=== PATIENT | male | born 1945 | race Caucasian/White ===

== ENCOUNTER 2018-06-16 09:50 | Day surgery (SDC) | payer MEDICARE, OTHER ==
[~2018-06-16 09:50] MED LIST: ACETAMINOPHEN 1,000 MG/100 ML BTL IV ONE
[2018-06-16] MEDS ORDERED: PROPOFOL 10 MG/ML VIAL IV ONE (09:51)
[2018-06-16] MEDS ORDERED: BUPIVACAINE 0.25% W/EPI MPF 30ML VIAL IVP ONE (09:51)
[2018-06-16] MEDS ORDERED: FENTANYL PF 100MCG/2ML VIAL IV ONE (09:51)
[2018-06-16] MEDS ORDERED: *PACU ONLY* KETAMINE HCL 10 MG/ML (20ML) VIAL IV ONE (09:51)
--- NOTE | 2018-06-17 12:20 | Operative Note ---
DATE OF SURGERY: 06/16/2018 Surgeon: Anatoliy Perkins DO Referring physician: Saul Pineda MD, FACP PREOPERATIVE DIAGNOSES: 1. Chest wall mass. 2. Back mass. POSTOPERATIVE DIAGNOSES: 1. Chest wall mass. 2. Back mass. OPERATION: 1. Excision of chest wall mass, measuring 3 x 2 cm in the subcutaneous. 2. Excision of back mass, measuring 5 x 2 cm into the subcutaneous. Indication: The patient is a 73-year-old male who presented to the clinic with pain and the aforementioned masses. He had had an abscess on his back, which was I & D'd in the past. We did discuss excision, risks, benefits, and alternatives were discussed. His risks include bleeding, infection, recurrence. He understood this fully. The consent was signed, questions were answered. PROCEDURE: He was taken to the operating room and placed in the supine position. He was rotated on his side with the beanbag as support. His back and chest were prepped and draped in the usual fashion. The area on his back was anesthetized with a total of 8 mL of 0.25% Sensorcaine with epinephrine. An elliptical incision made around the rather large sebaceous cyst. This was dissected free in the subcutaneous tissue with cautery. This was then fully excised without rupture. This did measure 5 x 2 cm. The wound was then irrigated. A [place] drain was placed and nylon sutures were used to close the wound. Attention was now turned to the chest where the patient had a smaller sebaceous cyst excised measuring 3 x 2 cm. Here, no drain was placed and this wound was also closed with 3-0 nylon. The patient tolerated the procedure well. I will see him back in a few weeks. He was given drain care instructions as well. Thank you for this referral. CC: SAUL PINEDA MD, FACP [facility]
== END 2018-06-16 12:05 | disposition home or self-care (01) ==
LOC: SUR 09:50
PROVIDERS: ATTEND Surgery
DX: R22.2 Localized swelling, mass and lump, trunk (principal); I10 Essential (primary) hypertension; E78.00 Pure hypercholesterolemia, unspecified; Z79.01 Long term (current) use of anticoagulants; J44.9 Chronic obstructive pulmonary disease, unspecified; I25.10 Atherosclerotic heart disease of native coronary artery without angina pectoris; Z95.5 Presence of coronary angioplasty implant and graft; G47.30 Sleep apnea, unspecified
CPT/HCPCS: 11406; 11404; 00300; J3010

== ENCOUNTER 2018-06-20 09:04 | Day surgery (SDC) | payer MEDICARE, OTHER ==
[2018-06-20] MEDS ORDERED: PROPOFOL 10 MG/ML VIAL IV ONE (09:05)
[2018-06-20] MEDS ORDERED: LIDOCAINE 1% MDV (10MG/ML) 20ML VIAL SQ ONE (09:05)
[2018-06-20] MEDS ORDERED: FENTANYL PF 100MCG/2ML VIAL IV ONE (09:05)
--- NOTE | 2018-07-02 12:30 | Operative Note ---
DATE OF SURGERY: 06/20/2018 SURGEON: Lynn Gipson MD OPERATION: ESOPHAGOGASTRODUODENOSCOPY. INDICATIONS: This is a 73-year-old male with history of intermittent episodes of dysphagia who presented for esophagogastroduodenoscopy. POSTOPERATIVE DIAGNOSES: 1. Normal esophagus with no mass lesions, status post Mcmillan dilatation to 60 [place]. 2. Diffuse erosion and erythema along the gastric body and antrum. 3. Normal duodenum. ANESTHESIA: Sedation is per Anesthesia. Pulse oximetry was monitored throughout the procedure to maintain O2 saturation of 90% or greater. Supplemental oxygen was administered via nasal cannula. Cardiac and vital signs were monitored throughout the duration of the procedure, and they were stable. The procedure of esophagogastroduodenoscopy and risks and benefits of the procedure, including the risk of bleeding and perforation, among others, were explained to the patient who voiced understanding and agreed to have the procedure done. Physical examination was performed, and the patient was found stable for sedation. PROCEDURE: The patient was placed in the left lateral position. Sedation was initiated. A plastic bite block was inserted into the oral cavity. The Olympus [id number] gastroscope was introduced into the oral cavity and advanced to the proximal esophagus without difficulty. The esophageal mucosa was carefully examined upon introduction of the gastroscope. The proximal and mid and distal esophageal mucosa appeared normal. The gastroscope was then advanced into the stomach, and surveillance of the stomach revealed diffuse erythema along the gastric body and antrum but no ulcers were noted. The gastroscope was then advanced to the descending duodenum without difficulty. The duodenal bulb and descending duodenum appeared normal. The gastroscope was then withdrawn into the stomach and retroflexion was performed. There were no other lesions noted. The gastroscope was then straightened and withdrawn while carefully examining the gastric and esophageal mucosa. No other lesions noted. Multiple gastric biopsies were obtained. Then a Mcmillan dilator size 60 [place] was then passed into the stomach with minimal resistance. The Mcmillan dilator was then withdrawn and the procedures were terminated. The patient tolerated the procedure well without any immediate complaints. The patient remained with stable vital signs and was transferred to the recovery room. RECOMMENDATIONS: 1. The patient is to continue on proton pump inhibitors. 2. The patient is to have repeat esophagogastroduodenoscopy as needed. Of note, there are postsurgical changes consistent with Huan fundoplication that was intact. Thank you for allowing me to participate in the care of your patient. CC: SAUL IBRAHIM MD, FACP [facility]
== END 2018-06-20 11:20 | disposition home or self-care (01) ==
LOC: HOP 09:04
PROVIDERS: ATTEND Internal Medicine Gastroenterology
DX: R13.10 Dysphagia, unspecified (principal); K29.70 Gastritis, unspecified, without bleeding; E78.00 Pure hypercholesterolemia, unspecified; I10 Essential (primary) hypertension; J44.9 Chronic obstructive pulmonary disease, unspecified
CPT/HCPCS: 43235; 43450; 00731; 88305; J3010

== ENCOUNTER 2018-11-26 00:06 | Emergency (ER) | payer MEDICARE, OTHER ==
[2018-11-26] MEDS ORDERED: 0.9 % SODIUM CHLORIDE 1,000 ML BAG IV ONE (00:19)
[2018-11-26] MEDS ORDERED: FENTANYL PF 100MCG/2ML VIAL IVP ONE ×2 (00:19→02:10)
[2018-11-26] MEDS ORDERED: ONDANSETRON HCL IV 4 MG/2 ML VIAL IVP ONE ×2 (00:19→01:12)
[2018-11-26] MEDS ORDERED: ACETAMINOPHEN 1,000 MG/100 ML BTL IVPB ONE (00:26)
--- NOTE | 2018-11-26 00:26 | Emergency Department Record ---
History of Present Illness - General Chief complaint: Vomiting Stated complaint: NAUSEA/VOMITING Time Seen by Provider: 11/26/18 00:15 Source: Patient, Family Mode of Arrival: Ambulatory Limitations: No limitations - History of Present Illness Initial comments: 73 yo male presents with nausea, vomiting, and abdominal pain that started this evening around 9pm. He did not feel well during the afternoon when he ate experiencing some pain. The pain and nausea progressed to vomiting in the evening around 9pm. 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 (Dr Jose Camarillo) He has had some pain for several months. He has seen his PCP and GI. He had upper endoscopy in June. It demonstrated a normal esophagus S/P a Mcmillan dilatation to 60 [place]; gastric erosions of the body and antrum noted, normal duodenum. The patient had no swallowing issues after the June dilatation until possibly around August when is began again. The states that in the recent several weeks he eating again is poor with some pain or difficulty swallowing. CT of the abdomen WO contrast on 11/18/18 demonstrated colonic diverticulosis without diverticulitis. He has continued to have the pain. He points to the epigastrium at the location of the pain with some radiation to the chest and back. No blood in the vomit. PCP Dr Pineda GI Dr Gipson- Endoscopy Thoracic Dr Camarillo - Paraesophageal hernia Cardiology Dr Terry General Surgery Dr Perkins - Gall bladder complaint: Abdominal pain, Nausea, Vomiting Onset/Timin -: Hour(s) Description of Vomiting: Watery Associated Abdominal Pain: Yes Location: LUQ, RUQ Radiation: Back, Chest, LLQ, RLQ Severity: Moderate Severity scale (1-10): 6 Quality: Aching Consistency: Constant Improves with: None Worsens with: Movement, Other Context: History of abdominal surgery Associated Symptoms: Chest pain, Nausea/vomiting - Related Data Allergies Allergy/AdvReac Type Severity Reaction Status Date / Time morphine AdvReac HYPOTENSION Unverified 11/08/17 13:25 Travel Screening - Travel/Exposure Within Last 30 Days Have you traveled within the last 30 days?: No - Travel Symptoms Symptom Screening: Vomiting, Stomach Pain, Lack of Appetite Review of Systems Constitutional: Reports: Fever. Denies: Chills, Malaise, Weakness Eyes: Denies: Eye discharge ENT: Denies: Congestion, Throat pain Respiratory: Denies: Cough, Dyspnea, Hemoptysis, Stridor, Wheezes Cardiovascular: Reports: As per HPI, Chest pain. Denies: Edema, Palpitations, Syncope Endocrine: Denies: Fatigue Gastrointestinal: Reports: As per HPI, Abdominal pain, Nausea, Vomiting. Denies : Constipation, Diarrhea, Hematemesis, Hematochezia, Melena Genitourinary: Denies: Dysuria, Frequency, Hematuria Musculoskeletal: Reports: As per HPI, Back pain. Denies: Arthralgia, Myalgia Skin: Denies: Bruising, Change in color, Rash Neurological: Denies: Headache Psychiatric: Denies: Anxiety Hematological/Lymphatic: Denies: Easy bleeding, Easy bruising, Swollen glands Past Medical History - SOCIAL HISTORY Smoking Status: Former smoker Alcohol Use: None Drug Use: None - RESPIRATORY Hx Respiratory Disorders: Yes Hx COPD: Yes (controlled with inhalers) Hx Pneumonia: Yes (as a kid) Hx Sleep Apnea: Yes Hx of CPAP: Yes (bi pap) Comment:: problems with diaphram, injury yrs ago had sx to fix it 13 yrs ago - CARDIOVASCULAR Hx Cardio Disorders: Yes Hx Abnormal EKG: Yes Hx Chest Pain: No Hx Hypertension: Yes Hx Palpitations: No Hx Coronary Artery Disease: Yes Hx Coronary Stent: Yes (x's 2) Comment:: plays tennis currently - NEURO Hx Neuro Disorders: No - GI Hx GI Disorders: Yes Hx GI Bleed: Yes (03/2006) Hx Rectal Bleeding: Yes (03/2006) Hx of Polyps: Yes - Hx Genitourinary Disorders: No Hx Bladder Problem: Yes (frequent urination urgency) - ENDOCRINE Hx Endocrine Disorders: No - MUSCULOSKELETAL Hx Musculoskeletal Disorders: No Comment:: RLS - PSYCH Hx Psych Problems: No Hx Anxiety: Yes Hx Depression: Yes (occassionally) - HEMATOLOGY/ONCOLOGY Hx Hematology/Oncology Disorders: No Hx Anemia: Yes Hx Blood Disorders: Yes (polycythemia? does phlebotomy about every month) Hx Cancer: Yes (skin cancer) Family Medical History Any Significant Family History?: Yes Hx Diabetes: Brother/Sister Physical Exam - General General Appearance: Alert, Oriented x3, Cooperative Limitations: Other (Hard of hearing) - Head Head exam: Atraumatic, Normal inspection - Eye Eye exam: Normal appearance. negative: Conjunctival injection - ENT ENT exam: Normal exam Ear exam: Normal external inspection Nasal Exam: Normal inspection Mouth exam: Normal external inspection - Neck Neck exam: Normal inspection - Respiratory Respiratory exam: Normal lung sounds bilaterally. negative: Respiratory distress - Cardiovascular Cardiovascular Exam: Normal rhythm, Gallop, Tachycardia Peripheral Pulses: 2+: Radial (R), Radial (L) - GI/Abdominal GI/Abdominal exam: Soft (morbidly obese), Guarding (between umbilicus and epigastrium), Hernia (ventral, soft), Tenderness (diffusely tender but very soft abdomen. The tenderness is greatest above the umbilicus. No distension), Other (significant obesity does limit the examination but tender mid to upper abdomen otherwise soft. Lower abdomen is not tender at this time). negative: Diminished bowel sounds, Distended, Pulsatile mass - Rectal Rectal exam: Deferred - exam: Deferred - Extremities Extremities exam: Normal inspection - Back Back exam: Denies: CVA tenderness (R), CVA tenderness (L) - Neurological Neurological exam: Alert, Oriented X3 - Psychiatric Psychiatric exam: Normal affect, Normal mood - Skin Skin exam: Dry, Intact, Normal color, Warm Course Vital Signs 11/26/18 00:12 Pulse Rate [ 125 H Pulse Ox Probe] Respiratory 36 H Rate Blood Pressure 148/100 [Left Arm] Pulse Ox 93 L - Reevaluation(s) Reevaluation #1: EMR reviewed for prior CT scans EKG 00:30 Sinus tachycardia 116, intervals normal, axis R, ST NS anterior changes. Similar to prior EKG in general from 06/19/2017. 11/26/18 00:28 11/26/18 00:53 Temperature noted to be 100.4 11/26/18 00:54 The CBC was reviewed. His WBC count is elevated at 14 11/26/18 00:57 The lactic acid is 2.0 The CMP was reviewed. CR is 1.4 11/26/18 01:01 Clinically improved. Now able to relax enough to sleep. 11/26/18 01:28 Lipase is normal 11/26/18 01:34 The troponin is normal 11/26/18 01:36 The patient did vomit his oral contrast. He tried to drink a little more but he states he can not due to nausea. 11/26/18 02:10 The patient has returned from CT The patient still has pain in the abdomen. He points to the area between the umbilicus and the epigastrium. 11/26/18 02:23 I was informed by the helicopter technician there is a delay due to IT complications sending the images to [facility]. 11/26/18 02:34 IT issues resolved and images sent to [facility] 11/26/18 02:[address] [facility] [address] reviewed. Dilated loops of small bowel with the transition zone in the LUQ likely mid to distal jejunum. No mass. Chest CT was negative. General Surgery will be paged. 11/26/18 02:44 The case was discussed with Dr Perkins of general surgery and Dr Guadalupe of the ED. The patient is accepted for ED to ED transfer for further evaluation and workup. 11/26/18 03:05 Patient vomiting significant amount. NG tube ordered to relieve pressure. Medical Decision Making - Lab Data Result diagrams: 11/26/18 00:25 11/26/18 00:25 Disposition Disposition: Transfer Clinical Impression: Abdominal pain, Fever, Vomiting, Small bowel obstruction Disposition: Acute Care Hospital Transfer Transfer To: [facility] Reason For Transfer: Small Bowel Obstruction Accepting Physician: Collins Perkins Time Discussed w/Accepting Physician: 02:39 Condition: (3) Guarded Forms: Patient Portal Access Time of Disposition: 02:39 Quality - Quality Measures Quality Measures: N/A - Blood Pressure Screening Does Patient Have Any of the Following: Active Dx of HTN Blood Pressure Classification: Pre-Hypertensive BP Reading Systolic Measurement: 145 Diastolic Measurement: 89 Screening for High Blood Pressure: Patient Exclusion, Hx of HTN [G9744]
[2018-11-26 00:34] LABS: BASO % 0.1 % (0-6); EOS % 0.3 % (0-6); HEMATOCRIT 52.4 % (42.0-52.0); LYMPH % 4.2 % (16-45); MEAN CELL VOLUME 76.9 fl (81-97); MEAN CORPUSCULAR HGB CONC 30.5 g/dl (32-36); MONO % 3.9 % (0-9); PLATELET COUNT 205 K/uL (130-400); RED BLOOD COUNT 6.81 M/uL (4.40-5.70); RED CELL DISTRIBUTION WIDTH 20.1 % (11.5-14.5); WHITE BLOOD COUNT W/O DIFF 14.7 K/uL (4.2-12.2)
[2018-11-26 00:35] LABS: MEAN CORPUSCULAR HEMOGLOBIN 23.4 pg (27-33)
[2018-11-26 00:46] LABS: INR 1.1; PARTIAL THROMBOPLASTIN TIME 25.3 SECONDS (24.5-39.1); PROTHROMBIN TIME (PATIENT) 11.4 SECONDS (9.5-12.1)
[2018-11-26 00:54] LABS: ALB/GLOB RATIO 1.7 (1.1-1.8); ALBUMIN 4.5 g/dL (4.0-5.0); ALKALINE PHOSPHATASE 48 U/L (40-129); ALT/SGPT 33 U/L (<41); AST/SGOT 25 U/L (10.0-50.0); BLOOD UREA NITROGEN 20 mg/dL (8-23); CREATININE 1.4 mg/dL (0.7-1.2); EST GLOMERULAR FILTRATION RATE 53 mL/min; GLUCOSE,RANDOM 125 mg/dL (74-109); TOTAL PROTEIN 7.2 g/dL (6.6-8.7)
[2018-11-26 00:57] LABS: ANISOCYTOSIS 2+; MICROCYTOSIS 1+; PLATELET ESTIMATE NORMAL (NORMAL)
[2018-11-26] MEDS ORDERED: ERTAPENEM SODIUM 1 G in 0.9 % SODIUM CHLORIDE 100ML 100 ML IVPB ONE (02:42)
--- NOTE | 2018-11-26 14:20 | CT SCAN REPORT ---
EXAM: CT SCAN CHEST W CONTRAST, ABDOMEN AND PELVIS HISTORY: GENERALIZED ABDOMINAL PAIN. TECHNIQUE: Sequential axial images were obtained from the thoracic inlet through the bilateral adrenal glands after intravenous administration of 100 mL of Omnipaque-300 contrast material. FINDINGS: The heart appears normal. There is mild cardiomegaly without pericardial effusion. There is a fluid-filled esophagus and post-op surgical change at the gastroesophageal junction. No mediastinal or hilar lymphadenopathy. There is linear scar tissue in both lung bases. No pleural effusion. The liver appears homogeneous. The gallbladder is surgically removed. Pancreas and spleen appear normal. 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 The adrenal glands and kidneys appear normal. There is an early small bowel obstruction with a transition point in the left upper quadrant. There is colonic diverticulosis without evidence of diverticulitis. The urinary bladder appears normal. There is prostate gland hyperplasia. There is multilevel degenerative change of the thoracolumbar spine. IMPRESSION: 1. FINDINGS SUGGESTIVE OF AN EARLY SMALL BOWEL OBSTRUCTION WITH A TRANSITION POINT IN THE LEFT UPPER QUADRANT. THERE IS DISTENTION OF THE STOMACH AND ESOPHAGUS, WHICH IS FLUID-FILLED. 2. THERE ARE LINEAR OPACITIES IN BOTH LUNG BASES. JOB NUMBER: [id number] [facility]
--- NOTE | 2018-11-26 14:22 | CT SCAN REPORT ---
EXAM: CT SCAN ABDOMEN/PELVIS W CONTRAST, CT CHEST W CONTRAST HISTORY: GENERALIZED ABDOMINAL PAIN. TECHNIQUE: Sequential axial images were obtained from the thoracic inlet through the bilateral adrenal glands after intravenous administration of 100 mL of Omnipaque-[address] scan of the abdomen and pelvis also performed. FINDINGS: The heart appears normal. There is mild cardiomegaly without pericardial effusion. There is a fluid-filled esophagus and post-op surgical change at the gastroesophageal junction. No mediastinal or hilar lymphadenopathy. There is linear scar tissue in both lung bases. No pleural effusion. The liver appears homogeneous. The gallbladder is surgically removed. Pancreas and spleen appear normal. 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 The adrenal glands and kidneys appear normal. There is an early small bowel obstruction with a transition point in the left upper quadrant. There is colonic diverticulosis without evidence of diverticulitis. The urinary bladder appears normal. There is prostate gland hyperplasia. There is multilevel degenerative change of the thoracolumbar spine. IMPRESSION: 1. FINDINGS SUGGESTIVE OF AN EARLY SMALL BOWEL OBSTRUCTION WITH A TRANSITION POINT IN THE LEFT UPPER QUADRANT. THERE IS DISTENTION OF THE STOMACH AND ESOPHAGUS, WHICH IS FLUID-FILLED. 2. THERE ARE LINEAR OPACITIES IN BOTH LUNG BASES. JOB NUMBER: [id number] [facility]
== END 2018-11-26 03:27 | disposition short-term general hospital (02) ==
LOC: ER 00:06
DX: K56.609 Unspecified intestinal obstruction, unspecified as to partial versus complete obstruction (principal); R11.2 Nausea with vomiting, unspecified; I10 Essential (primary) hypertension; J44.9 Chronic obstructive pulmonary disease, unspecified; Z87.891 Personal history of nicotine dependence
CPT/HCPCS: 99285 ×2; 96376; 96365; 96375; 83605; 83690; 85730; 85610; 80053; 84484; 85027; 71260; 74177; 93005; 93010; Q9967; J1335; J2405; J3010; J7030

== ENCOUNTER 2018-12-30 11:40 | Emergency (ER) | payer MEDICARE, OTHER ==
[2018-12-30] MEDS ORDERED: SODIUM CHLORIDE 0.9% 500 ML IV ONE (13:04)
[2018-12-30 13:17] LABS: HEMATOCRIT 49.2 % (42.0-52.0); HEMOGLOBIN 15.1 gm/dl (14.0-18.0); MEAN CELL VOLUME 75.7 fl (81-97); MEAN CORPUSCULAR HEMOGLOBIN 23.2 pg (27-33); MEAN CORPUSCULAR HGB CONC 30.7 g/dl (32-36); MEAN PLATELET VOLUME 11.2 fl (7.4-10.4); PLATELET COUNT 203 K/uL (130-400); RED CELL DISTRIBUTION WIDTH 20.7 % (11.5-14.5); WHITE BLOOD COUNT W/O DIFF 8.5 K/uL (4.2-12.2)
[2018-12-30 13:26] LABS: BLOOD UREA NITROGEN 23 mg/dL (8-23); EST GLOMERULAR FILTRATION RATE > 60 mL/min
[2018-12-30 13:27] LABS: LIPASE 19 U/L (13-60); PLATELET ESTIMATE NORMAL (NORMAL)
[2018-12-30 13:29] LABS: GLUCOSE,RANDOM 106 mg/dL (74-109)
[2018-12-30 13:31] LABS: ALT/SGPT 28 U/L (<41)
[2018-12-30 13:32] LABS: ALBUMIN 4.4 g/dL (4.0-5.0); ALKALINE PHOSPHATASE 53 U/L (55-149); AST/SGOT 21 U/L (10.0-50.0)
[2018-12-30 13:33] LABS: BILIRUBIN,DIRECT < 0.2 mg/dL (0-0.3)
[2018-12-30 13:43] LABS: URINE APPEARANCE CLEAR; URINE BILIRUBIN NEGATIVE (NEGATIVE); URINE BLOOD NEGATIVE (NEGATIVE); URINE COLOR YELLOW; URINE GLUCOSE (UA) NEGATIVE (NEGATIVE); URINE KETONE NEGATIVE (NEGATIVE); URINE LEUKOCYTE ESTERASE NEGATIVE (NEGATIVE); URINE NITRITE NEGATIVE (NEGATIVE); URINE PROTEIN NEGATIVE (NEGATIVE); URINE UROBILINOGEN 0.2 E.U./dL (0.20 - 1.00)
--- NOTE | 2018-12-30 17:08 | Emergency Department Record ---
History of Present Illness - General Chief Complaint: Abdominal Pain Stated Complaint: ABD PAIN Time Seen by Provider: 12/30/18 12:56 Source: Patient Mode of Arrival: Ambulatory Limitations: No limitations - History of Present Illness Initial Comments: lower abd pain and back pain. he has had it in the past. Complaint: Abdominal pain, Flank pain Onset/Timin -: Year(s) Location: Bilateral flank, Diffuse, L Flank, R Flank, LLQ, RLQ Radiation: Back Severity: Severe Severity scale (1-10): 10 Quality: Other Consistency: Constant Improves With: Rest Worsens With: Movement - Related Data Allergies Allergy/AdvReac Type Severity Reaction Status Date / Time morphine AdvReac HYPOTENSION Unverified 11/08/17 13:25 Travel Screening - Travel/Exposure Within Last 30 Days Have you traveled within the last 30 days?: No - Travel Symptoms Symptom Screening: Stomach Pain Review of Systems Reviewed: No additional complaints except as noted below Constitutional: Reports: As per HPI. Denies: Chills, Fever, Malaise, Night sweats, Weakness, Weight change Eyes: Reports: As per HPI. Denies: Eye discharge, Eye pain, Photophobia, Vision change ENT: Reports: As per HPI. Denies: Congestion, Dental pain, Ear pain, Epistaxis , Hearing loss, Throat pain Respiratory: Reports: As per HPI. Denies: Cough, Dyspnea, Hemoptysis, Stridor, Wheezes Cardiovascular: Reports: As per HPI. Denies: Arrhythmia, Chest pain, Dyspnea on exertion, Edema, Murmurs, Orthopnea, Palpitations, Paroxysmal nocturnal dyspnea, Rheumatic Fever, Syncope Endocrine: Reports: As per HPI. Denies: Fatigue, Heat or cold intolerance, Polydipsia, Polyuria Gastrointestinal: Reports: As per HPI, Abdominal pain. Denies: Constipation, Diarrhea, Hematemesis, Hematochezia, Melena, Nausea, Vomiting Genitourinary: Reports: As per HPI. Denies: Dysuria, Frequency, Hematuria, Incontinence, Retention, Testicular pain, Testicular mass, Urgency Musculoskeletal: Reports: As per HPI. Denies: Arthralgia, Back pain, Gout, Joint swelling, Myalgia, Neck pain Skin: Reports: As per HPI. Denies: Bruising, Change in color, Change in hair/ nails, Lesions, Pruritus, Rash Neurological: Reports: As per HPI. Denies: Abnormal gait, Confusion, Headache, Numbness, Paresthesias, Seizure, Tingling, Tremors, Vertigo, Weakness Psychiatric: Reports: As per HPI. Denies: Anxiety, Auditory hallucinations, Depression, Homicidal thoughts, Suicidal thoughts, Visual hallucinations Hematological/Lymphatic: Reports: As per HPI. Denies: Anemia, Blood Clots, Easy bleeding, Easy bruising, Swollen glands Past Medical History - SOCIAL HISTORY Smoking Status: Former smoker Alcohol Use: None Drug Use: None - RESPIRATORY Hx Respiratory Disorders: Yes Hx COPD: Yes (controlled with inhalers) Hx Pneumonia: Yes (as a kid) Hx Sleep Apnea: Yes Hx of CPAP: Yes (bi pap) Comment:: problems with diaphram, injury yrs ago had sx to fix it 13 yrs ago - CARDIOVASCULAR Hx Cardio Disorders: Yes Hx Abnormal EKG: Yes Hx Chest Pain: No Hx Hypertension: Yes Hx Palpitations: No Hx Coronary Artery Disease: Yes Hx Coronary Stent: Yes (x's 2) Comment:: plays tennis currently - NEURO Hx Neuro Disorders: No - GI Hx GI Disorders: Yes Hx GI Bleed: No (03/2006, pt denies.) Hx Rectal Bleeding: Yes (03/2006) Hx of Polyps: Yes - Hx Genitourinary Disorders: Yes Hx Bladder Problem: Yes (frequent urination urgency) - ENDOCRINE Hx Endocrine Disorders: No - MUSCULOSKELETAL Hx Musculoskeletal Disorders: No Comment:: RLS - PSYCH Hx Psych Problems: Yes Hx Anxiety: Yes Hx Depression: Yes (occassionally) - HEMATOLOGY/ONCOLOGY Hx Hematology/Oncology Disorders: No Hx Anemia: Yes Hx Blood Disorders: Yes (polycythemia? does phlebotomy about every month) Hx Cancer: Yes (skin cancer) Family Medical History Any Significant Family History?: Yes Hx Diabetes: Brother/Sister Hx Heart Disease: Father Physical Exam - General General Appearance: Alert, Oriented x3, Cooperative, Mild distress - Head Head exam: Normal inspection - Eye Eye exam: Normal appearance, PERRL, EOMI Pupils: Normal accommodation - ENT ENT exam: Normal exam, Mucous membranes moist, Normal external ear exam, Normal orophraynx Ear exam: Normal external inspection. negative: External canal tenderness Nasal Exam: Normal inspection. negative: Discharge, Sinus tenderness Mouth exam: Normal external inspection, Tongue normal Teeth exam: Normal inspection. negative: Dental caries Throat exam: Normal inspection. negative: Tonsillar erythema, Tonsillar exudate - Neck Neck exam: Normal inspection, Full ROM. negative: Tenderness - Respiratory Respiratory exam: Normal lung sounds bilaterally. negative: Respiratory distress - Cardiovascular Cardiovascular Exam: Regular rate, Normal rhythm, Normal heart sounds - GI/Abdominal GI/Abdominal exam: Soft, Normal bowel sounds, Tenderness (lower quads) - Rectal Rectal exam: Deferred - exam: Deferred - Extremities Extremities exam: Normal inspection, Full ROM, Normal capillary refill. negative: Tenderness - Back Back exam: Reports: CVA tenderness (R), CVA tenderness (L), Full ROM. Denies: Muscle spasm, Rash noted, Tenderness - Neurological Neurological exam: Alert, Normal gait, Oriented X3, Reflexes normal - Psychiatric Psychiatric exam: Normal affect, Normal mood - Skin Skin exam: Dry, Intact, Normal color, Warm Course Vital Signs 12/30/18 12/30/18 12/30/18 12:07 14:02 15:43 Temperature 98.4 F Pulse Rate 84 Pulse Rate [ 72 81 Pulse Ox Probe] Respiratory 18 16 16 Rate Blood Pressure 142/94 Blood Pressure 113/79 127/95 [Left Arm] Pulse Ox 96 97 94 L - Reevaluation(s) Reevaluation #1: 12/30/18 17:07 ct neg for acute Reevaluation #2: 12/30/18 17:08 pt feela better Medical Decision Making - Lab Data Result diagrams: 12/30/18 13:00 12/30/18 13:00 Lab Results 12/30/18 12/30/18 12/30/18 Range/Units 13:00 13:00 13:35 WBC 8.5 (4.2-12.2) K/uL RBC 6.50 H (4.40-5.70) M/uL Hgb 15.1 (14.0-18.0) gm/dl Hct 49.2 (42.0-52.0) % MCV 75.7 L (81-97) fl MCH 23.2 L (27-33) pg MCHC 30.7 L (32-36) g/dl RDW 20.7 H (11.5-14.5) % Plt Count 203 (130-400) K/uL MPV 11.2 H (7.4-10.4) fl Neutrophils % 84.0 H (47-80) % Eosinophils % Not Reportable Basophils % Not Reportable Lymphocytes 8.0 L (16-45) % Monocytes 8.0 (0-9) % Platelet Estimate Normal (NORMAL) RBC Morphology Normal Sodium 138 (136-145) mmol/L Potassium 5.8 H (3.4-4.5) mmol/L Chloride 100 (98-107) mmol/L Carbon Dioxide 27.0 (22-29) mmol/L Anion Gap 11.0 (7-16) BUN 23 (8-23) mg/dL Creatinine 1.0 (0.7-1.2) mg/dL Estimated GFR > 60 mL/min Random Glucose 106 (74-109) mg/dL Calcium 9.5 (8.8-10.2) mg/dL Total Bilirubin 0.40 (0.2-1.0) mg/dL Direct Bilirubin < 0.2 (0-0.3) mg/dL AST 21 (10.0-50.0) U/L ALT 28 (<41) U/L Alkaline Phosphatase 53 L (55-149) U/L Total Protein 7.0 (6.6-8.7) g/dL Albumin 4.4 (4.0-5.0) g/dL Lipase 19 (13-60) U/L Urine Color Yellow Urine Appearance Clear Urine pH 6.5 (5.0-8.0) Ur Specific [employer] 1.010 (1.002-1.030) Urine Protein Negative (NEGATIVE) Urine Glucose (UA) Negative (NEGATIVE) Urine Ketones Negative (NEGATIVE) Urine Blood Negative (NEGATIVE) Urine Nitrite Negative (NEGATIVE) Urine Bilirubin Negative (NEGATIVE) Urine Urobilinogen 0.2 (0.20 - 1.00) E.U./dL Ur Leukocyte Esterase Negative (NEGATIVE) Disposition Disposition: Discharge Clinical Impression: Abdominal pain Qualifiers: Abdominal location: lower abdomen, unspecified Qualified Code(s): R10.30 - Lower abdominal pain, unspecified Disposition: Home, Self-Care Condition: (1) Good Instructions: Abdominal Pain (ED) Additional Instructions: follow up with GI doctor. return sooner if worse Quality - Quality Measures Quality Measures: N/A - Blood Pressure Screening Does Patient Have Any of the Following: Active Dx of HTN Blood Pressure Classification: Hypertensive Reading Systolic Measurement: 142 Diastolic Measurement: 94 Screening for High Blood Pressure: Patient Exclusion, Hx of HTN [G9744]
--- NOTE | 2019-01-01 10:45 | CT SCAN REPORT ---
EXAM: POST CONTRAST CT OF THE ABDOMEN AND PELVIS HISTORY: PELVIC PAIN, BILATERAL LOWER EXTREMITY PAIN, PRIOR HIATAL HERNIA REPAIR. TECHNIQUE: CT of the abdomen and pelvis was obtained with 100 ml Omnipaque 300 intravenous contrast as well as oral contrast. Comparison: CT abdomen and pelvis 11/26/18. FINDINGS: Right lower lobe calcified granuloma. Mild scattered atelectasis or scarring in the lung bases. The liver appears unremarkable. The gallbladder is surgically absent. Calcified granulomas in the spleen. The adrenal glands are unremarkable. Unremarkable appearance of the pancreas. Symmetric renal perfusion. Chronic nonspecific perinephric stranding. Aortoiliac arterial access is tortuous and calcified without aneurysmal dilation. No retroperitoneal lymphadenopathy. Descending and sigmoid colon diverticulosis without evidence of acute diverticulitis. Normal appendix. Oral contrast material reaches the distal small bowel loops. The small bowel is not dilated. There A small hiatal hernia with associated post surgical changes. No mesenteric adenopathy. No free air or free fluid. Prominent appearance of the prostate gland. Distended appearance of the urinary bladder, otherwise unremarkable. Multilevel disk degeneration and facet arthrosis of the lumbar spine with likely underlying neural foraminal narrowing. Degenerative changes of hips bilaterally. No definite acute osseous findings. IMPRESSION: 1. NO ACUTE FINDINGS IN THE ABDOMEN OR PELVIS. 2. SMALL HIATAL HERNIA WITH ASSOCIATED POST SURGICAL CHANGE OF THE STOMACH. 3. COLONIC DIVERTICULOSIS WITHOUT EVIDENCE OF ACUTE DIVERTICULITIS. 4. MULTILEVEL DEGENERATIVE CHANGES OF THE LUMBAR SPINE. 5. ADDITIONAL INCIDENTAL AND CHRONIC FINDINGS DESCRIBED IN THE BODY OF THE REPORT. JOB NUMBER: [id number] MTDD
== END 2018-12-30 17:32 | disposition home or self-care (01) ==
LOC: ER 11:40
DX: R10.32 Left lower quadrant pain (principal); R10.31 Right lower quadrant pain; I10 Essential (primary) hypertension; J44.9 Chronic obstructive pulmonary disease, unspecified; Z87.891 Personal history of nicotine dependence
CPT/HCPCS: 74177; 80048; 80076; 81003; 83690; 85027; 99284

== ENCOUNTER 2019-12-18 14:09 | Emergency (ER) | payer MEDICARE, OTHER ==
--- NOTE | 2019-12-18 14:44 | Emergency Department Record ---
History of Present Illness - General Chief complaint: Swelling of legs Stated complaint: SWELLING IN LEGS Time Seen by Provider: 12/18/19 14:23 Source: Patient, Family Mode of Arrival: Wheelchair Limitations: No limitations - History of Present Illness Initial comments: The patient is here due to multiple complaints. He had a Laminectomy surgery at [facility] 10 days ago and was discharged 7 days ago. During the hospital stay he did require multiple Mace catheters due to urine retention and was discharged with a catheter and leg bag. The patient did develop a soft tissue penile infection and did see a Urologist earlier this week and was started on Keflex. Since the penile infection is much better and he does have an appointment with them in 5 days. For the last few days the patient has had some lower leg swelling mainly on the R with mild coolness of the R leg. There has been no pain or numbness. The patient has been pretty much bedbound since the surgery. Per the patient's the wound looks very good and clean. The patient denies any fever, chills, CP or SOB and does take an ASA and Plavix daily. Additionally the patient feels he has had an eye infection with drainage and irritation this week. MD Complaint: Extremity swelling Onset/Timin -: Days(s) Associated Symptoms: Denies other symptoms - Related Data Home Medications Medication Instructions Recorded Confirmed Last Taken Cephalexin [Keflex] 500 mg PO TID 12/18/19 12/18/19 Unknown Finasteride [Proscar] 5 mg PO 12/18/19 Unknown Oxycodone HCl/Acetaminophen 1 each PO Q6H PRN 12/18/19 12/18/19 Unknown [Percocet 7.5mg/325mg] Tamsulosin HCl [Flomax] 0.4 mg PO 12/18/19 Unknown Allergies Allergy/AdvReac Type Severity Reaction Status Date / Time morphine AdvReac HYPOTENSION Unverified 11/08/17 13:25 Travel Screening - Travel/Exposure Within Last 30 Days Have you traveled within the last 30 days?: No - Travel/Exposure Within Last Year Have you traveled outside the [place] in the last year?: No - Additonal Travel Details Have you been exposed to anyone with a communicable illness?: No - Travel Symptoms Symptom Screening: None Review of Systems Constitutional: Denies: Chills, Fever Eyes: Denies: Eye discharge ENT: Denies: Congestion Respiratory: Denies: Cough, Dyspnea Cardiovascular: Denies: Chest pain Past Medical History - SOCIAL HISTORY Smoking Status: Former smoker Alcohol Use: None Drug Use: None - RESPIRATORY Hx Respiratory Disorders: Yes Hx COPD: Yes (controlled with inhalers) Hx Pneumonia: Yes (as a kid) Hx Sleep Apnea: Yes Hx of CPAP: Yes (bi pap) Comment:: problems with diaphram, injury yrs ago had sx to fix it 13 yrs ago - CARDIOVASCULAR Hx Cardio Disorders: Yes Hx Abnormal EKG: Yes Hx Chest Pain: No Hx Hypertension: Yes Hx Palpitations: No Hx Coronary Artery Disease: Yes Hx Coronary Stent: Yes (x's 2) Comment:: plays tennis currently - NEURO Hx Neuro Disorders: No - GI Hx GI Disorders: Yes Hx GI Bleed: No (03/2006, pt denies.) Hx Rectal Bleeding: Yes (03/2006) Hx of Polyps: Yes - Hx Genitourinary Disorders: Yes Hx Bladder Problem: Yes (frequent urination urgency) - ENDOCRINE Hx Endocrine Disorders: No - MUSCULOSKELETAL Hx Musculoskeletal Disorders: Yes Comment:: RLS - PSYCH Hx Psych Problems: Yes Hx Anxiety: Yes Hx Depression: Yes (occassionally) - HEMATOLOGY/ONCOLOGY Hx Hematology/Oncology Disorders: No Hx Anemia: Yes Hx Blood Disorders: Yes (polycythemia? does phlebotomy about every month) Hx Cancer: Yes (skin cancer) Family Medical History Any Significant Family History?: No Hx Diabetes: Brother/Sister Hx Heart Disease: Father Physical Exam - General General Appearance: Alert, Oriented x3, Cooperative, No acute distress - Head Head exam: Atraumatic, Normocephalic - Eye Eye exam: PERRL, Conjunctival injection (mild bilaterally.). negative: Normal appearance - Neck Neck exam: Normal inspection, Full ROM. negative: Tenderness - Respiratory Respiratory exam: Normal lung sounds bilaterally. negative: Respiratory distress - Cardiovascular Cardiovascular Exam: Regular rate, Normal rhythm, Normal heart sounds - GI/Abdominal GI/Abdominal exam: Soft, Normal bowel sounds. negative: Tenderness - exam: Circumcision, Other (There is mild diffuse erythema and edema to the penis and mainly the glans which is MUCH better than earlier in the week per the patient and . ). negative: Normal inspection, Scrotal swelling - Extremities Extremities exam: Normal capillary refill, Pedal edema (There is 1+ edema to the lower distal legs and feet R>L. There is mild coolness to the R foot. There is difficulty palpating pulses to the feet but the patient cannot lay flat due to the recent surgery.), Other (There is a very mild blanching nontender rash to the anterior knee. ). negative: Normal inspection, Calf tenderness - Neurological Neurological exam: Alert, Normal gait. negative: Abnormal gait, Motor sensory deficit Course Vital Signs 12/18/19 14:11 Temperature 97.5 F L Pulse Rate 92 H Respiratory 16 Rate Blood Pressure 156/109 Pulse Ox 95 - Reevaluation(s) Reevaluation #1: The patient is resting comfortably at this time and is actually sleeping in the room. He denies any new pain or any discomfort or any CP, SOB, or AP. I did discuss the radiology results that are normal for the patient. He is to continue to take his home medicines and to use the Erythromycin cream on the eyes. We did place some HC cream on the patient's R knee and the rash has pretty much resolved. 12/18/19 17:41 Medical Decision Making - Data Complexity MDM Data: Labs Ordered and/or Reviewed, X-Ray Ordered and/or Reviewed - Lab Data Result diagrams: 12/18/19 14:40 12/18/19 14:40 - Radiology Data Radiology results: Report reviewed (R leg Doppler venous and arterial system: Neg for ischemia and DVT.) Disposition Disposition: Discharge Clinical Impression: Leg edema Disposition: Home, Self-Care Condition: (2) Stable Instructions: Leg Edema (ED) Additional Instructions: Please continue your home medicines and keep your post operative follow up appointments as directed. Use the Hydrocortisone cream to the R knee daily for 7 days and also use the eye ointment 3 times a day for 5 days. Please use the compression stockings daily as directed and off at night. Please see your family doctor next week for recheck. Return to the ER for any worsening symptoms. Forms: Patient Portal Access Time of Disposition: 17:47 Quality - Quality Measures Quality Measures: N/A - Blood Pressure Screening View Details: Yes Does Patient Have Any of the Following: Active Dx of HTN Blood Pressure Classification: Hypertensive Reading Systolic Measurement: 157 Diastolic Measurement: 109 Screening for High Blood Pressure: Patient Exclusion, Hx of HTN [G9744]
[2019-12-18 14:47] LABS: ABSOLUTE NEUTROPHIL COUNT 5.94; BASO % 0.3 % (0-6); GRAN % 75.8 % (47-80); HEMATOCRIT 50.5 % (42.0-52.0); HEMOGLOBIN 15.6 gm/dl (14.0-18.0); LYMPH % 11.7 % (16-45); MEAN CELL VOLUME 76.5 fl (81-97); MEAN CORPUSCULAR HEMOGLOBIN 23.6 pg (27-33); MEAN CORPUSCULAR HGB CONC 30.9 g/dl (32-36); MEAN PLATELET VOLUME 10.9 fl (7.4-10.4); MONO % 10.2 % (0-9); PLATELET COUNT 220 K/uL (130-400); RED CELL DISTRIBUTION WIDTH 21.2 % (11.5-14.5); WHITE BLOOD COUNT W/O DIFF 7.8 K/uL (4.2-12.2)
[2019-12-18 15:00] LABS: BLOOD UREA NITROGEN 14 mg/dL (8-23); CREATININE 1.2 mg/dL (0.7-1.2); EST GLOMERULAR FILTRATION RATE > 60 mL/min
[2019-12-18 15:01] LABS: TOTAL PROTEIN 6.5 g/dL (6.6-8.7)
[2019-12-18 15:03] LABS: GLUCOSE,RANDOM 106 mg/dL (74-109)
[2019-12-18] MEDS ORDERED: OXYCODONE/APAP 7.5MG/325MG TABLET PO ONE (15:03)
[2019-12-18 15:05] LABS: ALT/SGPT 46 U/L (<41)
[2019-12-18] MEDS ORDERED: ERYTHROMYCIN OPTH OINT 3.5GM OPTH ONE (15:05)
[2019-12-18 15:06] LABS: ALBUMIN 3.9 g/dL (4.0-5.0); ALKALINE PHOSPHATASE 79 U/L (40-129); AST/SGOT 21 U/L (10.0-50.0)
[2019-12-18 15:26] LABS: BILIRUBIN,DIRECT < 0.2 mg/dL (0-0.3)
[2019-12-18] MEDS ORDERED: HYDROCORTISONE 1% CREAM 28.35 GM TUBE TOP PRN (16:41)
--- NOTE | 2019-12-18 17:30 | ULTRASOUND REPORT ---
EXAMINATION: Right Lower Extremity Arterial Duplex Doppler Imaging EXAM DATE: 12/18/2019 5:07 PM TECHNIQUE: Color Doppler, spectral Doppler, and rogers scale ultrasound evaluation of the right lower extremity arteries was performed. INDICATION: R leg pain, swelling, and coolness.. COMPARISON: Lower extremity arterial Doppler 06/23/2019 FINDINGS: 1. Common Femoral Artery: The peak systolic velocity is 118.7 cm/sec. The spectral waveform is norm al. No aneurysm, significant stenosis or occlusion is present. Color Doppler images show no aliasin g. 2. Superficial Femoral Artery: The spectral waveform is normal. No significant stenosis or occlusi on is present. 3. Popliteal Artery: The spectral waveform is normal. No aneurysm, occlusion or significant stenos is is present. 4. Anterior Tibial Artery: The spectral waveform is normal. No occlusion or significant stenosis i s present. 5. Posterior Tibial Artery: The spectral waveform is normal. No occlusion or significant stenosis is present. 6. Peroneal Artery: The spectral waveform is normal. No occlusion or significant stenosis is presen t. 7. Dorsalis Pedis Artery: The spectral waveform is normal. No occlusion or significant stenosis is present. MICHAEL: 1.0 IMPRESSION: No hemodynamically significant stenosis or aneurysm is present. No change from prior study. Dictated by: Ancelmo Jones MD on 12/18/2019 5:28 PM. .
--- NOTE | 2019-12-18 17:35 | ULTRASOUND REPORT ---
EXAMINATION: Right Lower Extremity Ultrasound, Venous Duplex Doppler EXAM DATE: 12/18/2019 5:08 PM TECHNIQUE: Color Doppler, spectral Doppler, and rogers scale evaluation of the right lower extremity fr om the common femoral vein to the popliteal vein. Evaluation of the deep venous system of the lower extremity was performed. INDICATION: R leg pain, swelling, and coolness. PROCEDURE: Duplex scan of extremity veins including responses to compression and other maneuvers; un ilateral study FINDINGS: The deep venous system of the right leg appears normal, with normal flow and compressibili ty. No filling defects are seen. IMPRESSION: 1. Negative for DVT. Dictated by: Phan De La Cruz MD on 12/18/2019 5:24 PM. .
== END 2019-12-18 18:09 | disposition home or self-care (01) ==
LOC: ER 14:09
DX: R60.0 Localized edema (principal); M79.661 Pain in right lower leg; J44.9 Chronic obstructive pulmonary disease, unspecified; I10 Essential (primary) hypertension; Z87.891 Personal history of nicotine dependence; Z95.5 Presence of coronary angioplasty implant and graft
CPT/HCPCS: 80048; 80076; 85025; 86140; 99284